=== PATIENT | female | born 1960 | race Caucasian/White ===

== ENCOUNTER 2025-04-23 11:12 | Emergency (ER) | payer MEDICAID, MEDICARE ==
[~2025-04-23] VITALS: Ht 180.3 cm; Wt 86.0 kg
[2025-04-23 11:21] VITALS: BP 116/79; TEMP 36.8; O2SAT 98
[2025-04-23 11:25] VITALS: PULSE 85; RESP 20; O2SAT 99
== END 2025-04-23 13:22 | disposition left against medical advice (07) ==
LOC: ER 11:12
DX: M54.9 Dorsalgia, unspecified (principal); Z53.21 Procedure and treatment not carried out due to patient leaving prior to being seen by health care provider